=== PATIENT | male | born 1965 | race Caucasian/White ===

== ENCOUNTER → 2020-04-18 09:02 | Outpatient (CLI) | payer OTHER, SELFPAY ==
--- NOTE | ~2020-04-18 | CT_ITS ---
EXAMINATION: CT abdomen pelvis wo/w con DATE: 04/18/2020 09:43 INDICATION: Gross hematuria. Right flank pain. TECHNIQUE: Computed tomography (CT) of the abdomen and pelvis was performed without and with intraven ous contrast using a total of 130 mL Omnipaque-350 intravenous contrast with a double-bolus technique for simultaneous opacification of the renal parenchyma and renal collecting system. Automated exposu re control and iterative reconstruction technique were employed. The dose-length product was 2355.12 mGy-cm. COMPARISON: None FINDINGS: The visualized portions of the lung bases demonstrate a calcified left lower lobe nodule, consistent with old granulomatous disease. No pleural effusion. The heart size is normal. No pericardial effusio n. There is diffuse hepatic steatosis. There is a 13 mm hyperenhancing mass in left hepatic lobe. Stanley cifications in the spleen are consistent with old granulomatous disease. The gallbladder, pancreas, a nd adrenal glands are normal. There are cysts in the kidneys measuring up to 13 mm on the left. There is a 6 mm stone in left kidney. The ureters are well opacified and are normal. The bladder is normal . The prostate is mildly enlarged. There are no dilated loops of bowel. There are no pathologically e nlarged lymph nodes. There is no free intraperitoneal fluid. There is mild thoracolumbar spondylosis. IMPRESSION: 1. 6 mm nonobstructing left kidney stone. 2. 13 mm hyperenhancing liver mass. In the absence of known malignancy or chronic liver disease, this finding is likely a hemangioma or focal nodular hyperplasia. Reviewed, dictated and finalized at location A. ROASTER IMPRESSION: 1. 6 mm nonobstructing left kidney stone. 2. 13 mm hyperenhancing liver mass. In the absence of known malignancy or chron ic liver disease, this finding is likely a hemangioma or focal nodular hyperpla blaze.
[2020-04-18 09:20] LABS: Estimated Glomerular Filt Rate > 60
== END ==
PROVIDERS: PCP Family Medicine; Visit Provider Urology
DX: R31.0 Gross hematuria (principal); N20.0 Calculus of kidney; R16.0 Hepatomegaly, not elsewhere classified
CPT/HCPCS: 74178; Q9967

== ENCOUNTER → 2020-05-03 09:47 | Outpatient (CLI) | payer OTHER, SELFPAY ==
--- NOTE | ~2020-05-03 | XR_ITS ---
EXAMINATION: XR abdomen/kub 1V INDICATION: Calcium kidney stone TECHNIQUE: Supine views of the abdomen were obtained on 2 radiographs. COMPARISON: CT, 04/18/2020 FINDINGS: There is a 7 mm stone in the left kidney lower pole. No additional urolithiasis is identifi ed. The bowel gas pattern is normal. There is mild osteoarthritis of the hips. IMPRESSION: 1. Left nephrolithiasis. Reviewed, dictated and finalized at location A. [employer] IMPRESSION: 1. Left nephrolithiasis.
== END ==
PROVIDERS: PCP Family Medicine; Visit Provider Urology
DX: N20.0 Calculus of kidney (principal)
CPT/HCPCS: 74018

== ENCOUNTER → 2021-01-17 16:49 | Outpatient (CLI) | payer OTHER, SELFPAY ==
--- NOTE | ~2021-01-17 | XR_ITS ---
XR knee RT 3V DATE: 01/17/2021 17:30 INDICATION: Arthralgia. Right knee pain. TECHNIQUE: [place] and standing AP and lateral views COMPARISON: None FINDINGS: Slight periarticular spurring at the patellofemoral joint. Joint spaces appear well preserv ed. No fracture or dislocation or joint effusion. No radiopaque intra-articular loose body or chondrocalc inosis. No periosteal reaction or bone destruction. IMPRESSION: Mild osteoarthritis at the patellofemoral joint Reviewed, dictated and finalized at location A.
--- NOTE | ~2021-01-17 | XR_ITS ---
XR foot RT 2V DATE: 01/17/2021 17:30 INDICATION: Arthralgia. Right foot pain. TECHNIQUE: AP and lateral views COMPARISON: None FINDINGS: Mild plantar calcaneal enthesopathy without associated erosive change or periostitis. Minimal calcification of the distal Achilles tendon. No fracture or dislocation, periosteal reaction or bone destruction. IMPRESSION: Mild plantar calcaneal enthesopathy, minimal calcification of distal Achilles tendon Reviewed, dictated and finalized at location A. IMPRESSION: Mild plantar calcaneal enthesopathy, minimal calcification of dista l Achilles tendon
--- NOTE | ~2021-01-17 | XR_ITS ---
XR hand BI arthritis min 3V DATE: 01/17/2021 17:29 INDICATION: Arthralgia. Bilateral hand pain TECHNIQUE: 3 views of each hand COMPARISON: None FINDINGS: No fracture or dislocation, periosteal reaction or bone destruction. Minimal osteoarthritic change at the right third metacarpophalangeal joint. No evidence of erosive change. No chondrocalcinosis. IMPRESSION: Minimal osteoarthritic change at the right third metacarpophalangeal joint Reviewed, dictated and finalized at location A. IMPRESSION: Minimal osteoarthritic change at the right third metacarpophalangea l joint
--- NOTE | ~2021-01-17 | XR_ITS ---
XR knee LT 3V DATE: 01/17/2021 17:30 INDICATION: Arthralgia. Knee pain. TECHNIQUE: Standing AP and lateral views. Mckenzie view. COMPARISON: None FINDINGS: There is slight periarticular spurring of the patella. No fracture or dislocation or joint effusion. No periosteal reaction or bone destruction. IMPRESSION: Mild patellofemoral osteoarthritis Reviewed, dictated and finalized at location A.
--- NOTE | ~2021-01-17 | XR_ITS ---
XR foot LT 2V DATE: 01/17/2021 17:30 INDICATION: Arthralgia. Left foot pain. TECHNIQUE: AP and lateral views COMPARISON: None FINDINGS: Posterior calcaneal enthesopathy. No fracture or dislocation, periosteal reaction or bone destruction. No erosive change. IMPRESSION: Posterior calcaneal enthesopathy Reviewed, dictated and finalized at location A.
== END ==
DX: M25.50 Pain in unspecified joint (principal); Z79.899 Other long term (current) drug therapy; Z51.81 Encounter for therapeutic drug level monitoring; M77.32 Calcaneal spur, left foot; M77.31 Calcaneal spur, right foot; M65.871 Other synovitis and tenosynovitis, right ankle and foot; M17.0 Bilateral primary osteoarthritis of knee; M19.042 Primary osteoarthritis, left hand; M19.041 Primary osteoarthritis, right hand
CPT/HCPCS: 73130; 73562; 73620

== ENCOUNTER 2022-01-15 08:31 | Outpatient (CLI) | payer OTHER, SELFPAY ==
--- NOTE | ~2022-01-15 | XR_ITS ---
EXAMINATION: XR chest 2V DATE: 01/15/2022 09:00 INDICATION: Chronic cough and shortness of breath TECHNIQUE: PA and lateral views of the chest are obtained. COMPARISON: 03/03/2010 FINDINGS: The lungs are free of acute opacities. No pleural effusion or pneumothorax. The cardiomedia stinal silhouette is normal. The visualized bones and soft tissues are unremarkable. IMPRESSION: 1. No acute cardiopulmonary abnormality. Reviewed, dictated and finalized at location B.
== END 2022-01-15 08:32 | disposition home or self-care (01) ==
PROVIDERS: PCP Family Medicine; Visit Provider Family Medicine
DX: U09.9 Post COVID-19 condition, unspecified (principal); R06.09 Other forms of dyspnea; R05.3 Chronic cough
CPT/HCPCS: 71046

== ENCOUNTER → 2022-12-07 08:01 | Outpatient (CLI) | payer OTHER, SELFPAY ==
--- NOTE | ~2022-12-07 | XR_ITS ---
EXAMINATION: XR chest 2V DATE: 12/07/2022 08:16 INDICATION: Chronic abdominal and left lateral chest pain TECHNIQUE: PA and lateral views of the chest were obtained. COMPARISON: Chest radiograph dated 01/15/2022 FINDINGS: The lungs remain clear with no focal airspace opacities, pulmonary edema, pleural effusion or pneumot horax. The cardiomediastinal silhouette is normal. Chronic left eighth rib fracture, unclear whether united or ununited. IMPRESSION: 1. No acute cardiopulmonary disease. 2. Chronic left eighth rib fracture, unclear whether ununited or ununited. Reviewed, dictated and finalized at location A.
== END ==
PROVIDERS: PCP Nurse Practitioner Family; Visit Provider Nurse Practitioner Family
DX: R10.9 Unspecified abdominal pain (principal); M84.48XA Pathological fracture, other site, initial encounter for fracture
CPT/HCPCS: 71046

== ENCOUNTER 2022-12-27 12:29 | Outpatient (CLI) | payer OTHER, SELFPAY ==
--- NOTE | 2022-12-27 16:20 | WPDPFTINT ---
PFT Procedure Performed PFT Procedure Performed Spirometry with Pre/Post Bronchodilator Plethysmography (Lung Vol) Diffusing Cap (DLCO) Flow Vol Loop PFT Interpretation This is a pulmonary function test with pre and post-bronchodilator spirometry, plethysmography and diffusing capacity. The test was performed and results interpreted in accordance with the 2019 and 2005 ATS/ERS Task Force guidelines respectively using the Global Lung Function Initiative-2012 reference equations. Patient demonstrated good effort and cooperation. Reproducibility criteria were met. The quality of the pre bronchodilator spirometry maneuver was Grade A and post bronchodilator spirometry maneuver was Grade A. Findings: Spirometry: The contour the inspiratory and expiratory flow tracing are normal. The pre bronchodilator FVC is 4.98 L, 107% predicted. The pre bronchodilator FEV1 is 4.08 L, 112% predicted. The pre bronchodilator FEV1: FVC ratio is 82%. The post bronchodilator FVC is 5.01 L, representing 1% increase. The post bronchodilator FEV1 is 4.21 L, representing a 3% increase. The post bronchodilator FEV1: FVC ratio was 84%. Plethysmography: The total lung capacity is 7.97 L, 118% predicted. The functional residual capacity is 4.22 L, 122% predicted. The residual volume is 2.84 L, 137% predicted. Diffusing capacity: The diffusing capacity unadjusted for hemoglobin and carboxyhemoglobin is 32.2, 110% predicted. The diffusing capacity adjusted for alveolar volume is 5.07, 114% predicted. Impression: The spirometry is normal without evidence of an obstructive abnormality. There is no significant improvement after inhaling a single dose of albuterol. The total lung capacity and functional residual capacity are normal with an increased residual volume. This is an abnormal but nonspecific lung volume pattern. The diffusing capacity is normal. There are no prior studies for comparison
== END 2022-12-27 12:30 | disposition home or self-care (01) ==
PROVIDERS: PCP Nurse Practitioner Family; Visit Provider Nurse Practitioner Family
DX: R05.9 Cough, unspecified (principal); R06.02 Shortness of breath
CPT/HCPCS: 94060; 94726; 94729

== ENCOUNTER 2023-01-08 13:32 | Outpatient (CLI) | payer OTHER, SELFPAY ==
--- NOTE | ~2023-01-08 | CT_ITS ---
EXAMINATION: CT chest abdomen wo con DATE: 01/08/2023 13:54 INDICATION: Chronic cough TECHNIQUE: Computed tomography (CT) of the chest and abdomen was performed without intravenous contra st. The dose-length product (DLP) was 1405.10 mGy-cm. Automated exposure control and iterative recons truction technique were employed. COMPARISON: 04/18/2020 FINDINGS: CHEST: The lungs are free of acute opacities. No pleural effusion or pneumothorax. Calcified pulmonar y nodules and calcified left hilar lymph nodes are consistent with old granulomatous disease. No path ologically enlarged thoracic lymph nodes are identified. The heart size is normal. There is calcified coronary artery atherosclerosis. There is a healing left eighth rib fracture. ABDOMEN: The liver, pancreas, gallbladder, and adrenal glands are normal. Punctate calcifications in an otherwise normal spleen likely represent healed granulomatous disease. There are punctate nonobstr ucting stones of the right kidney. There is a 1.4 cm cyst of the left kidney. There are no pathologic ally enlarged abdominal lymph nodes. Calcified atherosclerosis is noted. No free intraperitoneal gas or evidence of bowel obstruction. IMPRESSION: 1. No CT correlate for the patient's symptoms. Reviewed, dictated and finalized at location L.
== END 2023-01-08 13:33 | disposition home or self-care (01) ==
PROVIDERS: PCP Nurse Practitioner Family; Visit Provider Nurse Practitioner Family
DX: R05.3 Chronic cough (principal); R06.02 Shortness of breath; R10.9 Unspecified abdominal pain; R06.09 Other forms of dyspnea; U09.9 Post COVID-19 condition, unspecified
CPT/HCPCS: 71250; 74150

== ENCOUNTER 2023-02-01 13:29 | Outpatient (CLI) | payer OTHER, SELFPAY ==
--- NOTE | ~2023-02-01 | US_ITS ---
EXAMINATION: US carotid duplex BI DATE: 02/01/2023 14:04 INDICATION: Dizziness and giddiness TECHNIQUE: Grayscale, color Doppler, and pulsed Doppler images of the cervical carotid arteries were obtained. The degree of vessel stenosis is placed in one of the following categories: normal, <50%, 5 0-69%, >=70% but less than near-occlusion, near-occlusion, or total occlusion. Note that percent sten osis relative to normal distal artery lumen diameter is indirectly measured from velocity measurement s as described by Channing, et al. Radiology 2003; 229:340-346. COMPARISON: None. FINDINGS: RIGHT: The right common carotid artery (CCA) peak systolic velocity (PSV) is 81 cm/s. The right internal car otid artery (ICA) PSV is 72 cm/s. The right ICA end-diastolic velocity (EDV) is 31 cm/s. The right IC A/CCA PSV ratio is 0.9. Grayscale and color Doppler images yield an estimate of <50% diameter reducti on from plaque in the ICA. The external carotid artery (ECA) PSV is 114 cm/s. There is antegrade flow in the right vertebral artery. LEFT: The left CCA PSV is 96 cm/s. The left ICA PSV is 72 cm/s. The left ICA EDV is 23 cm/s. The left ICA/C CA PSV ratio is 0.8. Grayscale and color Doppler images yield an estimate of <50% diameter reduction from plaque in the ICA. The ECA PSV is 119 cm/s. There is antegrade flow in the left vertebral artery . IMPRESSION: 1. <50% stenosis in the right internal carotid artery. 2. <50% stenosis in the left internal carotid artery. Reviewed, dictated and finalized at location A.
== END 2023-02-01 13:30 | disposition home or self-care (01) ==
LOC: ANHIMG 13:34
PROVIDERS: PCP Nurse Practitioner Family; Visit Provider Nurse Practitioner Family
DX: I65.23 Occlusion and stenosis of bilateral carotid arteries (principal); R42 Dizziness and giddiness
CPT/HCPCS: 93880

== ENCOUNTER 2023-02-25 13:28 | Outpatient (CLI) | payer OTHER, SELFPAY ==
--- NOTE | 2023-02-25 13:56 | ECHO_ITS ---
Patient Info Name: Srinivasa Degroot Age: 57 years : 1965 Gender: Male Ht: 68 in Wt: 255 lbs BSA: 2.41 m2 HR: 78 bpm BP: 130 / 79 mmHg Technical Quality: Fair Exam Date: 02/25/2023 1:58 PM [facility]am [facility] Patient Status: Outpatient Admit Date: 02/25/2023 Staff Ordering Physician: Angelito Ibrahim APRN Calibration Engineer: Radha Shane RDCS Attending Provider: Angelito Ibrahim APRN Referring Physician: Patrice YIN; Exam Type: CA echo doppler color flow Study Info Indications R06.09 - Other forms of dyspnea Complete two-dimensional, color flow and Doppler transthoracic echocardiogram is performed. Summary 1. Complete two-dimensional, color flow and Doppler transthoracic echocardiogram is performed. 2. Left ventricular chamber dimension is normal. 3. Left ventricular systolic function is normal, estimated at 55-60%. 4. There is mild concentric increased left ventricular wall thickness. 5. Left ventricular septal wall motion is abnormal with septal motion related to bundle branch block. 6. The left ventricular diastolic function is grade I diastolic dysfunction. 7. E/e' 9 is minimally elevated. 8. Left atrial chamber dimension is mildly enlarged. 9. There is mild mitral valve regurgitation. 10. There is trace tricuspid valve regurgitation. 11. No pulmonary hypertension, estimated pulmonary arterial systolic pressure is 29 mmHg. 12. There is trace pulmonic regurgitation. Left Ventricle E/e' 9 is minimally elevated. Left ventricular chamber dimension is normal. Left ventricular systolic function is normal, estimated at 55-60%. There is mild concentric increased left ventricular wall thickness. Left ventricular septal wall motion is abnormal with septal motion related to bundle branch block. The left ventricular diastolic function is grade I diastolic dysfunction. Right Ventricle Right ventricular chamber dimension is normal. Right ventricular systolic function is normal. Left Atria Left atrial chamber dimension is mildly enlarged. Right Atria Right atrial chamber dimension is normal. Aortic Valve The aortic valve is trileaflet. There is no aortic valve stenosis. There is no aortic valve regurgitation. Pulmonic Valve There is trace pulmonic regurgitation. Mitral Valve There is no mitral valve stenosis. There is mild mitral valve regurgitation. Tricuspid Valve There is trace tricuspid valve regurgitation. No pulmonary hypertension, estimated pulmonary arterial systolic pressure is 29 mmHg. Pericardium/Pleural There is no pericardial effusion. Inferior Vena Cava Normal inferior vena cava with >50% collapse upon inspiration consistent with normal right atrial pressure, 5 mmHg. Aorta The aortic root size at the sinus of Valsalva is normal. Left Ventricular Outflow Tract Name Value Normal LVOT 2D LVOT Diameter 2.1 cm LVOT Doppler LVOT Peak Gradient 6 mmHg LVOT Mean Gradient 3 mmHg LVOT VTI 22 cm LVOT VTI/AV VTI Ratio 0.9 LVOT Stroke Volume 78 ml LVOT CO 17.8 l/min
== END 2023-02-25 13:29 | disposition home or self-care (01) ==
PROVIDERS: PCP Nurse Practitioner Family; Visit Provider Nurse Practitioner Family
DX: R06.09 Other forms of dyspnea (principal); R42 Dizziness and giddiness; I34.0 Nonrheumatic mitral (valve) insufficiency; I07.1 Rheumatic tricuspid insufficiency; I37.1 Nonrheumatic pulmonary valve insufficiency; R93.1 Abnormal findings on diagnostic imaging of heart and coronary circulation
CPT/HCPCS: 93306

== ENCOUNTER 2023-03-04 08:35 | Outpatient (CLI) | payer OTHER, SELFPAY ==
--- NOTE | 2023-03-12 19:26 | WPDHOMESLEEP ---
Sleep Study - Home Unattended Date of Study: 03/04/23 Ordering Provider: Angelito Ibrahim APRN Interpreting Provider: Jonelle Evangelista, DO Home Sleep Study Type: Watch PAT Height: 1.73 m Weight: 117.934 kg Body Mass Index: 39.5 Neck Circumference (inches): 18 [place]: 14 Reason for Sleep Study Daytime hypersomnia Sleep History The patient is a 57-year-old male with hypertension, hyperlipidemia, diabetes, depression, coronary artery disease, fatty liver and obesity that had a sleep study ordered by the pulmonary group for evaluation of sleep apnea. The patient denies awakening from sleep short of breath. He occasionally awakens at night with heartburn, belching or cough. He occasionally snores but it is never loud enough that others complain. He frequently has trouble sleeping when he has a cold. He denies waking up gasping for air throughout the night. He occasionally has breathing problems at night observed by himself or others. He denies sweating excessively at night. He denies having heart palpitations or irregular heartbeats during the night. He constantly falls asleep during the day but rarely falls asleep while driving. He denies sleep paralysis, cataplexy and hypnagogic / hypnopompic hallucinations. He denies having trouble at school or work due to sleepiness. He denies feeling afraid of going to sleep. He rarely has nightmares. He denies remembering his dreams. He frequently has thoughts racing through his mind. He denies feeling sad or depressed. He occasionally has anxiety. He frequently has muscular tension. He frequently notices parts of his body jerk. He frequently kicks during the night. He denies experiencing crawling and aching feelings in his legs and denies having leg pain during the night. He rarely grinds his teeth during sleep but never awakens with morning jaw pain. He denies being bothered by pain during the day and denies being awakened by pain during the night. He frequently wakes up feeling stiff in the morning. He rarely wakes up with sore or achy muscles. He frequently wakes up with pain in the neck, spine or other joints. He goes to bed at 9:00 p.m. on weekdays and between 10-11 p.m. on the weekends. It takes him 5 minutes to fall asleep. He wakes up 1-2 times throughout the night to urinate. He states it is difficult to fall back asleep. He wakes up between 4-5 a.m. on both weekdays and weekends. He typically gets 6-7 hours of sleep per night. He will stay in bed for 20 minutes after waking up in the morning on weekdays and up to 1 hour on the weekends. He currently lives with his and 2 adult children. He denies consuming any caffeinated beverages within 2 hours of bedtime. He denies engaging in physical exercise before bedtime. He will watch television before falling asleep. He will take naps in afternoon or the evening but they are not refreshing. He consumes 1 cup of caffeinated coffee per day. He will consume a 12 pack of beer on the weekend. He denies tobacco and recreational drug use. [facility] Past Medical History Medical History Abdominal pain in male Abnormal fasting glucose Acute bronchitis Acute non-recurrent maxillary sinusitis Adult BMI 39.0-39.9 kg/sq m Carpal tunnel syndrome of left wrist Chronic cough Chronic depression Colon cancer screening Cologuard screening negative on 04/13/2020 with recheck in 3 years Controlled diabetes mellitus Glucose 142 with hemoglobin A1c 6.1 on 08/10/2021. Glucose 132 with hemoglobin A1c 6.8 on 01/09/2022. Cough COVID-19 (~06/24/20) COVID-19 (~06/09/21) 2nd episode COVID-19 [place] manifesting chronic cough (~06/2021) COVID-19 [place] manifesting chronic dyspnea (~06/2021) Diabetes type 2, uncontrolled DMII (diabetes mellitus, type 2) Encounter for prostate cancer screening Encounter for wellness examination in adult Essential (primary) hypertension Exposure
[2023-03-12 19:31] VITALS: BMI 39.5
== END 2023-03-06 12:55 | disposition home or self-care (01) ==
LOC: ANHCSM 08:35
PROVIDERS: PCP Nurse Practitioner Family; Visit Provider Nurse Practitioner Family
DX: G47.10 Hypersomnia, unspecified (principal); G47.33 Obstructive sleep apnea (adult) (pediatric)
CPT/HCPCS: 95800

== ENCOUNTER 2024-03-05 07:56 | Outpatient (CLI) | payer OTHER, SELFPAY ==
--- NOTE | 2024-03-24 09:59 | WPDSLEEPSTUD ---
Sleep Study Date of Study: 03/05/24 Ordering Provider: Mohsen Sanford MD Interpreting Physician: Jonelle Evangelista DO Sleep Study Type: CPAP Titration Height: 1.75 m Weight: 121.563 kg Body Mass Index: 39.5 Neck Circumference (inches): 18 Prentice: 14 Reason for Sleep Study WatchPAT home sleep test on 03/04/2023 showed an overall AHI of 15.9 with desaturation down to 86%. Central apnea index of 4.0. Sleep History The patient is a 59-year-old male with hypertension, hyperlipidemia, diabetes, depression, coronary artery disease, fatty liver and obesity that had a sleep study ordered by the pulmonary group for evaluation of sleep apnea. The patient denies awakening from sleep short of breath. He occasionally awakens at night with heartburn, belching or cough. He occasionally snores but it is never loud enough that others complain. He frequently has trouble sleeping when he has a cold. He denies waking up gasping for air throughout the night. He occasionally has breathing problems at night observed by himself or others. He denies sweating excessively at night. He denies having heart palpitations or irregular heartbeats during the night. He constantly falls asleep during the day but rarely falls asleep while driving. He denies sleep paralysis, cataplexy and hypnagogic / hypnopompic hallucinations. He denies having trouble at school or work due to sleepiness. He denies feeling afraid of going to sleep. He rarely has nightmares. He denies remembering his dreams. He frequently has thoughts racing through his mind. He denies feeling sad or depressed. He occasionally has anxiety. He frequently has muscular tension. He frequently notices parts of his body jerk. He frequently kicks during the night. He denies experiencing crawling and aching feelings in his legs and denies having leg pain during the night. He rarely grinds his teeth during sleep but never awakens with morning jaw pain. He denies being bothered by pain during the day and denies being awakened by pain during the night. He frequently wakes up feeling stiff in the morning. He rarely wakes up with sore or achy muscles. He frequently wakes up with pain in the neck, spine or other joints. He goes to bed at 9:00 p.m. on weekdays and between 10-11 p.m. on the weekends. It takes him 5 minutes to fall asleep. He wakes up 1-2 times throughout the night to urinate. He states it is difficult to fall back asleep. He wakes up between 4-5 a.m. on both weekdays and weekends. He typically gets 6-7 hours of sleep per night. He will stay in bed for 20 minutes after waking up in the morning on weekdays and up to 1 hour on the weekends. He currently lives with his and 2 adult children. He denies consuming any caffeinated beverages within 2 hours of bedtime. He denies engaging in physical exercise before bedtime. He will watch television before falling asleep. He will take naps in afternoon or the evening but they are not refreshing. He consumes 1 cup of caffeinated coffee per day. He will consume a 12 pack of beer on the weekend. He denies tobacco and recreational drug use. [facility] Past Medical History Medical History Abdominal pain in male Abnormal fasting glucose Acute bronchitis Acute non-recurrent maxillary sinusitis Adult BMI 39.0-39.9 kg/sq m Bilateral otitis media Carpal tunnel syndrome of left wrist Chronic cough Chronic depression Colon cancer screening Cologuard screening negative on 04/13/2020 with recheck in 3 years Controlled diabetes mellitus Glucose 142 with hemoglobin A1c 6.1 on 08/10/2021. Glucose 132 with hemoglobin A1c 6.8 on 01/09/2022. Controlled diabetes mellitus with hyperglycemia, without long-term current use of insulin Glucose 142 with hemoglobin A1c 6.1 on 08/10/2021. Glucose 132 with hemoglobin A1c 6.8 on 01/09/2022. Cough COVID-19 (~06/24/20) COVID-19 (~06/09/21) 2nd episode COVID-19 long hauler manifesting chronic cough (~06/2021) COVID-19 long hauler manifesting chronic dyspnea (~06/2021) Encounter for prostate cancer screening Encounter for wellness examination in adult Essential (primary) hypertension Exposure to COVID-19 virus Fatty liver AST 17 and ALT 32 on 08/10/2021. AST 30 and ALT 37 on 01/09/2022. Hematuria, gross urinalysis normal 08/10/2021. Urinalysis normal on 01/09/2022. Insomnia Left flank pain Left knee pain intermittent left lateral knee pain with no instability Left ventricular hypertrophy due to hypertensive disease (12/17/16) moderate LVH on echocardiogram 12/17/2017 with nuclear stress test with left bundle branch block and possible anteroseptal defect. Cardiac catheterization 12/20/2017 with less than 20% lesions in coronary arteries per Microscopic hematuria Urinalysis normal 01/09/2022. Mixed hyperlipidemia total cholesterol 156, triglycerides 173, HDL 44, LDL 85 on 08/10/2021. Total cholesterol 172, triglycerides 257, HDL 45 and LDL 93 on 01/09/2022. Morbid obesity with BMI of 40.0-44.9, adult Osteoarthritis involving multiple joints on both sides of body Otitis media in diseases classified elsewhere, right ear Renal stone Rheumatoid arthritis of multiple sites without organ or system involvement with positive rheumatoid factor CRP 5 on 08/10/2021. Rib pain on left side (~07/2021) Chest x-ray on 01/15/2022 was normal. Seasonal allergic rhinitis SOB (shortness of breath) Vitamin B12 deficiency anemia B12 385 with goal greater than 400 with folic acid 13.1 and hemoglobin 14.6 on 08/10/2021 Wrist pain, left Surgical History Surgical History H/O knee surgery H/O shoulder surgery History of ankle surgery Family History Family History Mother Hypertension Sibling Hypertension Father Family history of lung cancer Patient's father is Social History Social History Smoking status: Never smoker Alcohol intake: current Drinks per week: 6 Alcohol use details: beer Substance use: never Substance use type: does not use Living arrangements: with family Gender identity (if verbalized by the patient): Male Medications Home Medications Medication Instructions Recorded Confirmed Type cetirizine 10 mg tablet (Zyrtec) 10 mg PO DAILY PRN allergy symptoms 06/10/19 12/25/23 History fluticasone propionate 50 1 spray intranasal BID 06/10/19 12/25/23 History mcg/actuation nasal spray,suspension (Flonase Allergy Relief) aspirin 81 mg tablet,delayed 81 mg PO DAILY 09/06/20 12/25/23 History release (Adult Aspirin Regimen) blood sugar diagnostic (Blood #100 ea 12/12/22 12/25/23 Rx Glucose Test strips) blood-glucose meter #1 ea 12/12/22 12/25/23 Rx lancets 33 gauge (BD Ultra Fine #100 ea 12/12/22 12/25/23 Rx Lancets) lisinopril 40 mg tablet 40 mg PO DAILY #30 tabs 05/06/23 12/25/23 Rx cefdinir 300 mg capsule 300 mg PO Q12H #20 caps 06/28/23 12/25/23 Rx escitalopram oxalate 10 mg tablet 10 mg PO DAILY #90 tabs 07/01/23 12/25/23 Rx (Lexapro) doxycycline hyclate 100 mg tablet 100 mg PO BID #20 tabs 08/20/23 12/25/23 Rx prednisone 20 mg tablet 20 mg PO . q.a.m. #7 tabs 08/20/23 12/25/23 Rx atorvastatin 40 mg tablet 40 mg PO DAILY #90 tabs 11/11/23 12/25/23 Rx semaglutide 2 mg/dose (8 mg/3 mL) 2 mg (0.75 mL) subcut WEEKLY #3 mL 12/25/23 12/25/23 Rx subcutaneous pen injector (Ozempic) amlodipine 5 mg tablet 5 mg PO DAILY #30 tabs 02/19/24 Rx zolpidem 10 mg tablet (Ambien) 10 mg PO QHS PRN insomnia #2 tabs 03/03/24 Rx naproxen 500 mg tablet (Naprosyn) 500 mg PO BID PRN pain #180 tabs 03/23/24 Rx Sleep Procedure A full night polysomnogram using the [place] multi-channel system recorded the standard physiologic parameters including EEG, EOG, submentalis EMG, anterior tibialis EMG, EKG, body position, nasal and oral airflow using nasal pressure sensor and thermistor.? Respiratory parameters of chest and abdominal movements were recorded with Respiratory Inductance Plethysmography belts. Oxygen saturation was recorded by pulse oximetry. Video monitoring was also performed. Sleep stages, periodic limb movements, and EEG arousals were scored in 30 second epochs according to the criteria of the AASM Scoring Manual. The Apnea-Hypopnea Index was calculated using CMS guidelines for definition of hypopnea with 4% O2 desaturations while scoring respiratory events. Sleep Architecture The total recording time was 467.1 minutes.? The total sleep time was 367.0 minutes. Sleep latency was 8.4 minutes. REM latency was 46.5 minutes. Sleep efficiency was 78.6%. The patient had 57 awakenings for an awakening index of 9.3. Wake after Sleep Onset time was 91.5 minutes. The patient spent 50.0 minutes, 13.6% of total sleep time in Stage N1. The patient spent 260.0 minutes, 70.8% in Stage N2. The patient spent 0.0 minutes, 0.0% in Stage N3. The patient spent 57.0 minutes, 15.5% in Stage REM. Respiratory Analysis The patient had 12 hypopneas, 4 obstructive apneas and 2 mixed apneas for an overall Apnea Hypopnea Index of 2.9 events per hour. The REM Apnea Hypopnea Index was 2.1. The NREM Apnea Hypopnea Index was 3.1. The patient had a Central Apnea Hypopnea Index of 0. There was no evidence of Jayme-Vásquez Respirations. The patient was started on CPAP 5 cm H2O and titrated to CPAP 15 cm H2O with an EPR of 3 due to hypopneas. The patient was able to fall asleep starting on CPAP 5 cm H2O. The patient was able to achieve REM sleep starting on CPAP 7 cm H2O. The patient was able to achieve a residual AHI less than 5 with both NREM and REM sleep on 13 cm H2O. On CPAP 13 cm H2O, the patient spent 90.5 minutes in NREM and 14.5 minutes in REM with 5 hypopneas, resulting in an AHI of 2.9. The patient had a sleep efficiency of 91.3% on this pressure setting. Arousals There were 137 total arousals for an arousal index of 22.4. There were 71 spontaneous arousals for an index of 11.6. ?There were 19 arousals due to respiratory events for an index of 3.1. There were 24 arousals due to periodic limb movements for an index of 3.9.? There were 23 arousals due to isolated limb movements for an index of 3.8. Periodic Limb Movements The patient had 31 isolated limb movements with an index of 5.1. The patient had 91 periodic limb movements with index of 14.9. Patient had a total of 122 limb movements with a total limb movement index of 19.9. Oximetry Data The patient had an average oxygen saturation of 96.6% in sleep with a minimum oxygen saturation of 91.0% and a maximum oxygen saturation of 99.0%. The patient had 25 oxygen desaturations that were 4% or greater resulting in an Oxygen Desaturation Index of 4.1.? The patient spent [min] minutes, [%] of total sleep time with an oxygen saturation below 88%. Snoring Profile Mild snoring was present intermittently in the beginning of this study. The snoring resolved once the patient was titrated to CPAP 13 cm H2O. Cardiac Profile The EKG showed normal sinus rhythm with rare PACs. There were some QRS complexes that were suspicious for bundle brand block. The patient had an average pulse rate of 72.9 bpm with a minimum pulse rate of 60.0 bpm and a maximum pulse rate of 95.0 bpm. ? EEG Profile No signs of seizure activity seen. Assessment and Plan Assessment and Plan (1) AVIVA (obstructive sleep apnea): Code(s): G47.33 - Obstructive sleep apnea (adult) (pediatric) Status: Acute Assessment and Plan: The patient was started on CPAP 5 cm H2O and titrated to CPAP 15 cm H2O with an EPR of 3 due to hypopneas. We were able to find a pressure setting that resolved the patient's sleep apnea. I recommend that the patient be prescribed CPAP 13 cm H2O, size large F&P Solo nasal mask, CPAP filters/tubing and heated humidity. This should be used with all episodes of sleep.? Compliance should be reviewed within 31-90 days of starting therapy for usage greater than 4 hours per night greater than 70% of the nights. The patient should be asked about symptoms such as?excessive daytime sleepiness, quality of sleep, decreased nocturia, increased?mental functioning such as memory, mood, and concentration. The patient had a significant number of limb movements during the study with the majority being periodic in nature. The patient's sleep history is suggestive of Restless Leg Syndrome. I recommend that the patient have a serum ferritin drawn for evaluation of iron deficiency anemia. If the patient has a serum ferritin less than 75 ng/mL, I recommend starting a daily iron supplement and a Vitamin C supplement for better absorption. If the serum ferritin is greater than 75 ng/mL, I recommend starting a dopamine agonist and titrating the dose until symptoms resolve. There are nonpharmacological methods to treat limb movements including daily exercise, stretching calf muscles before bed, avoiding excessive amounts of caffeine and alcohol, vitamin B supplementation, magnesium lotion massaged into legs before bed, and use of a weighted blanket. Data The data obtained during this sleep study is adequate for interpretation. Certification This sleep study has been reviewed by a board certified sleep medicine physician.
[2024-03-24 10:00] VITALS: BMI 39.5
== END 2024-03-06 05:40 | disposition home or self-care (01) ==
LOC: ANHCSM 07:57
PROVIDERS: PCP Nurse Practitioner Family; Visit Provider Family Medicine
DX: G47.33 Obstructive sleep apnea (adult) (pediatric) (principal); G47.10 Hypersomnia, unspecified; F39 Unspecified mood [affective] disorder
CPT/HCPCS: 95811

== ENCOUNTER 2024-07-03 15:59 | Outpatient (CLI) | payer OTHER, SELFPAY ==
--- NOTE | ~2024-07-03 | CT_ITS ---
EXAMINATION: CT IAC/mastoids BI wo con DATE: 07/03/2024 16:16 INDICATION: Chronic mastoiditis, right ear. TECHNIQUE: Computed tomography (CT) of the temporal bones was performed without intravenous contrast. Automated exposure control and iterative reconstruction technique were employed. The dose-length pro duct was 402.17 mGy-cm. COMPARISON: CT sinuses 12/22/2007 FINDINGS: RIGHT TEMPORAL BONE: The internal auditory canal, cochlea, vestibule, semicircular canals, vestibular aqueduct, carotid ca nal, jugular bulb, and facial nerve course are normal. Incus is deformed and in abnormal position. Th ere is material in the tympanic cavity abutting the ossicles and tympanic membrane. Prussak space is clear. There is a myringotomy tube in expected position. Scutum is normal. The mastoid air cells and external auditory canal are normal. LEFT TEMPORAL BONE: The internal auditory canal, cochlea, vestibule, semicircular canals, vestibular aqueduct, carotid ca nal, jugular bulb, facial nerve course, ossicles, Prussak space, scutum, tympanic membrane, mastoid a ir cells, and external auditory canal are normal. IMPRESSION: 1. Material in right tympanic cavity with abnormal ossicles and with myringotomy tube, consistent wit h chronic otitis media. Reviewed, dictated and finalized at location A. IC ADDRESS SYSTEM OPERATOR IMPRESSION: 1. Material in right tympanic cavity with abnormal ossicles and with myringotom y tube, consistent with chronic otitis media.
--- OUTSIDE RECORDS SUMMARY | 2024-07-03 16:03 | XMS_ITS | Continuity of Care Document ---
Author Name [facility] Organization 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 Unavailable Unavailable Problems Combined list of problems from [facility] facilities. It does not include entries that were removed or entered in error. Problem Status Onset Date Problem Type Date of Resolution Comments Source Hyperlipidemia * (ICD-9-CM 272.4) Active Condition [facility] Impaired FASTING Glucose Active Condition [facility] Morbid Obesity Active Condition [facility] Medications Combined list of outpatient medications from [facility] facilities.Medications provided include 1) outpatient medications from the last 15 months, and 2) patient-reported medications. Medication Details Route Status Patient Instructions Prescription Expires Prescription Number Last Dispense Date Ordering Provider Order Date Order Qty Source ALPRAZOLAM 0.25MG TAB TAKE ONE TABLET BY MOUTH TWICE DAILY NEEDED ORAL ACTIVE FAN,SASKIA N 2011 [facility] CHOLECALCIF ARTHUR 25MCG (1,000UNIT) TAB TAKE ONE TABLET BY MOUTH ONCE A DAY ORAL ACTIVE FAN,SASKIA N 2011 [facility] Allergies, Adverse Reactions, Alerts Combined list of allergies from [facility] facilities. It does not include entries that were removed or entered in error. Substance Category Reaction Severity Reaction type Status Date Reported Comments Source LOVASTATIN Propensity to adverse reactions to drug (finding) Muscle pain active 2 [facility] PENICILLIN Propensity to adverse reactions to drug (finding) Eruption, Throat irritation active 2 [facility] Immunizations Combined list of available immunizations from the [facility] and [facility] facilities. Immunization Series Date Given Administered By Site Reaction Lot Number CVX Code Drug [employer] W[employer] Tester Status Comments Source INFLUENZA, UNSPECIFIED FORMULATION 2010 88 complet ed [facility] N TDAP 2008 115 complet ed [facility] [place] Social History Combined list of available smoking, tobacco, and other social history from [facility] facilities. Social History Type Response Date Comment Sour e Tobacco smoking status NHIS LIFETIME NON-USER OF TOBACCO 10/24/2011 [facility]
--- OUTSIDE RECORDS SUMMARY | 2024-07-03 16:03 | XMS_ITS | Patient Health Summary ---
Author Organization [facility] [employer] Address [address] [place] [address] Care Team Providers Care Pharmacy Data Analyst Name Role Phone Mohsen Sanford MD Primary Care Provider [phone] Note from [facility],non-owned Affiliates and Associated Physician Practices is amultiple site organization consisting of ambulatory clinics and hospital sitesin [place], [place], [place] and [place]. This disclosure is being madepursuant to the Care Everywhere program and may not contain all information available regarding this patient. Last updated 18.[facility] Allergies * Azithromycin(Unknown) * Penicillins(Anaphylaxis) -High Criticality Medications * Be aware that medications may not be up to date on this document. Alwaysverify current medications with the patient. * fluticasone propionate (FLONASE) 50 MCG/ACT nasal spray [place] 2 sprays into each nostril once daily * naproxen (NAPROSYN) 500 MG tablet(Started 11/09/2020) Take 500 mg by mouth 2 times daily as needed For pain. * metFORMIN ER 24hr (GLUCOPHAGE XR) 500 MG tablet(Started 12/10/2020) Take 1,000 mg by mouth 2 times daily * lisinopril (PRINIVIL; ZESTRIL) 40 MG tablet(Started 12/10/2020) Take 40 mg by mouth once daily * escitalopram (LEXAPRO) 10 MG tablet(Started 11/02/2020) Take 10 mg by mouth once daily * atorvastatin (LIPITOR) 40 MG tablet(Started 11/09/2020) Take 40 mg by mouth once daily * folic acid (FOLVITE) 1 MG tablet(Started 05/18/2021) Take 1 (one) tablet by mouth once daily 4 refills by 05/18/2022 * methotrexate 2.5 MG tablet(Started 09/15/2021) Take 6 (six) tablets by mouth every 7 days 2 refills by 09/15/2022 * methotrexate 2.5 MG tablet(Started 09/19/2021) TAKE 6 TABLETS BY MOUTH EVERY 7 DAYS 1 refill by 09/19/2022 Social History Tobacco Use Types Packs/Day Years Used Date Smoking Tobacco: Never Smokeless Tobacco: Never Sex and Gender Information Value Date Recorded Sex Assigned at Not on file Gender Identity Not on file Sexual Orientation Not on file Last Filed Vital Signs Vital Sign Reading Time Taken Comments Blood Pressure 154/90 12/21/2020 2:09 PM CDT Pulse 104 12/21/2020 2:09 PM CDT Temperature 36.8 C (98.3 F) 05/19/2019 8:35 AM 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 Respiratory Rate 18 12/21/2020 2:09 PM CDT Oxygen Saturation 98% 12/21/2020 2:09 PM CDT Inhaled Oxygen Concentration - - Weight 132.5 kg (292 lb) 12/21/2020 2:09 PM CDT Height 175.3 cm (5' 9 ) 12/21/2020 2:09 PM CDT Body Mass Index 43.12 12/21/2020 2:09 PM CDT Procedures * C-REACTIVE PROTEIN(Performed 08/10/2021) Performed for Arthralgia, unspecified joint * ERYTHROCYTE SEDIMENTATION RATE(Performed 08/10/2021) Performed for Arthralgia, unspecified joint * HEMOGLOBIN A1C(Performed 08/10/2021) Performed for Arthralgia, unspecified joint * VITAMIN B12 FOLATE PANEL(Performed 08/10/2021) Performed for Arthralgia, unspecified joint * PROSTATE SPECIFIC ANTIGEN SCREEN(Performed 08/10/2021) Performed for Arthralgia, unspecified joint * TSH(Performed 08/10/2021) Performed for Arthralgia, unspecified joint * URINALYSIS W/MICROSCOPIC NO CULTURE(Performed 08/10/2021) Performed for Arthralgia, unspecified joint * CBC W/O DIFFERENTIAL(Performed 08/10/2021) Performed for Arthralgia, unspecified joint * COMPREHENSIVE METABOLIC PANEL(Performed 08/10/2021) Performed for Arthralgia, unspecified joint * MICROALB/CREAT RATIO URINE RANDOM PANEL(Performed 08/10/2021) Performed for Arthralgia, unspecified joint * LIPID PROFILE(Performed 08/10/2021) Performed for Arthralgia, unspecified joint * C-REACTIVE PROTEIN(Performed 05/17/2021) * CBC W AUTO DIFFERENTIAL(Performed 05/17/2021) * URINALYSIS W/MICROSCOPIC REFLEX TO CULTURE(Performed 05/17/2021) * ERYTHROCYTE SEDIMENTATION RATE(Performed 05/17/2021) * COMPREHENSIVE METABOLIC PANEL(Performed 05/17/2021) * CULTURE URINE REFLEXED III(Performed 05/17/2021) * COMPREHENSIVE METABOLIC PANEL(Performed 03/13/2021) Performed for Rheumatoid arthritis involving left wrist with positive rheumatoid factor (HCC), Arthralgia, unspecified joint, High risk medication use, Long-term use of immunosuppressant medication * URINALYSIS W/MICROSCOPIC REFLEX TO CULTURE(Performed 03/13/2021) Performed for Rheumatoid arthritis involving left wrist with positive rheumatoid factor (HCC), Arthralgia, unspecified joint, High risk medication use, Long-term use of immunosuppressant medication * ERYTHROCYTE SEDIMENTATION RATE(Performed 03/13/2021) Performed for Rheumatoid arthritis involving left wrist with positive rheumatoid factor (HCC), Arthralgia, unspecified joint, High risk medication use, Long-term use of immunosuppressant medication * C-REACTIVE PROTEIN(Performed 03/13/2021) Performed for Rheumatoid arthritis involving left wrist with positive rheumatoid factor (HCC), Arthralgia, unspecified joint, High risk medication use, Long-term use of immunosuppressant medication * CBC W AUTO DIFFERENTIAL(Performed 03/13/2021) Performed for Rheumatoid arthritis involving left wrist with positive rheumatoid factor (HCC), Arthralgia, unspecified joint, High risk medication use, Long-term use of immunosuppressant medication * CULTURE URINE REFLEXED I(Performed 03/13/2021) * MOY BLOOD SCREEN W/REFLEX TITER(Performed 12/21/2020) Performed for Arthralgia, unspecified joint, High risk medication use, Encounter for therapeutic drug level monitoring, Long-term use of immunosuppressant medication * RHEUMATOID FACTOR BLOOD QUANTITATIVE(Performed 12/21/2020) Performed for Arthralgia, unspecified joint, High risk medication use, Encounter for therapeutic drug level monitoring, Long-term use of immunosuppressant medication * CYCLIC CITRUL PEPTIDE ANTIBODY IGG/IGA (CCP)(Performed 12/21/2020) Performed for Arthralgia, unspecified joint, High risk medication use, Encounter for therapeutic drug level monitoring, Long-term use of immunosuppressant medication * COMPLEMENT C4(Performed 12/21/2020) Performed for Arthralgia, unspecified joint, High risk medication use, Encounter for therapeutic drug level monitoring, Long-term use of immunosuppressant medication * COMPLEMENT C3(Performed 12/21/2020) Performed for Arthralgia, unspecified joint, High risk medication use, Encounter for therapeutic drug level monitoring, Long-term use of immunosuppressant medication * HEPATITIS B CORE ANTIBODY TOTAL(Performed 12/21/2020) Performed for Arthralgia, unspecified joint, High risk medication use, Encounter for therapeutic drug level monitoring, Long-term use of immunosuppressant medication * HEPATITIS B SURFACE ANTIBODY(Performed 12/21/2020) Performed for Arthralgia, unspecified joint, High risk medication use, Encounter for therapeutic drug level monitoring, Long-term use of immunosuppressant medication * HEPATITIS C ANTIBODY(Performed 12/21/2020) Performed for Arthralgia, unspecified joint, High risk medication use, Encounter for therapeutic drug level monitoring, Long-term use of immunosuppressant medication * URINALYSIS W/MICROSCOPIC NO CULTURE(Performed 12/21/2020) Performed for Arthralgia, unspecified joint, High risk medication use, Encounter for therapeutic drug level monitoring, Long-term use of immunosuppressant medication * ERYTHROCYTE SEDIMENTATION RATE(Performed 12/21/2020) Performed for Arthralgia, unspecified joint, High risk medication use, Encounter for therapeutic drug level monitoring, Long-term use of immunosuppressant medication * C-REACTIVE PROTEIN(Performed 12/21/2020) Performed for Arthralgia, unspecified joint, High risk medication use, Encounter for therapeutic drug level monitoring, Long-term use of immunosuppressant medication * COMPREHENSIVE METABOLIC PANEL(Performed 12/21/2020) Performed for Arthralgia, unspecified joint, High risk medication use, Encounter for therapeutic drug level monitoring, Long-term use of immunosuppressant medication * CBC W AUTO DIFFERENTIAL(Performed 12/21/2020) Performed for Arthralgia, unspecified joint, High risk medication use, Encounter for therapeutic drug level monitoring, Long-term use of immunosuppressant medication * QUANTIFERON-TB GOLD PLUS 4-TUBE(Performed 12/21/2020) Performed for Pain in joint, multiple sites, Encounter for therapeutic drug monitoring, High risk medications (not anticoagulants) long-term use, Encounter for long-term (current) use of medications Results * C-REACTIVE PROTEIN (08/10/2021 7:12 AM CDT) Only the most recent of4 resultswithin the time period is included. C-Reactive Protein 3.3 <8.0 mg/L [facility] Comment: REPORT COMMENT: MULTIPLE COLLECTION TIMES FOR SAME TEST TYPE. Test Performed at: [employer] [place] [address] BLUE DINH DO,MPH 08/10/2021 7:12 AM CDT 08/10/2021 7:13 AM CDT Meg Asher MD LAB - CHEMISTRY ORDERABLES Performing Organization Address [facility] Co de Phone Number [facility] [address] [place] [address] * ERYTHROCYTE SEDIMENTATION RATE (08/10/2021 7:12 AM CDT) Only the most recent of4 resultswithin the time period is included. Erythrocyte Sedimentation Rate Westergren 2 < OR = 20 mm/h [facility] Comment: Test Performed at: [facility] [facility] [place] [address] BLUE DINH DO,MPH 08/10/2021 7:12 AM CDT 08/10/2021 7:13 AM CDT Meg Asher MD LAB - HEMATOLOG Y ORDERABLES Performing Organization Address [facility] Co de Phone Number [facility] [address] [place] [address] * URINALYSIS W/MICROSCOPIC NO CULTURE (08/10/2021 7:08 AM CDT) Only the most recent of2 resultswithin the time period is included. Color UA YELLOW YELLOW [facility] Appearance CLEAR CLEAR [facility] Specific [place] UA 1.022 1.001 - 1.035 [facility] pH UA 6.5 5.0 - 8.0 [facility] Glucose UA NEGATIVE NEGATIVE [facility] Bilirubin UA NEGATIVE NEGATIVE [facility] Ketone UA NEGATIVE NEGATIVE [facility] Blood UA NEGATIVE NEGATIVE [facility] Protein UA NEGATIVE NEGATIVE [facility] Nitrite UA NEGATIVE NEGATIVE [facility] Leukocyte UA NEGATIVE NEGATIVE [facility] WBC UA NONE SEEN < OR = 5 /HPF [facility] RBC UA NONE SEEN < OR = 2 /HPF [facility] Epithelial Cell UA NONE SEEN < OR = 5 /HPF [facility] Bacteria UA NONE SEEN NONE SEEN /HPF [facility] Hyaline Casts NONE SEEN NONE SEEN /LPF [facility] Comment: Test Performed at: [place] [address] BLUE DINH DO,MPH 08/10/2021 7:08 AM CDT 08/10/2021 7:09 AM CDT Mohsen Sanford MD LAB - URINALYSIS ORD ERABLES Performing Organization Address City/[facility] de Phone Number [place] [address] [phone] [place] [address] * MICROALB/CREAT RATIO URINE RANDOM PANEL (08/10/2021 7:08 AM CDT) Creatinine Urine 139 20 - 320 mg/dL [facility] Microalbumin Urine 0.9 mg/dL [facility] Comment: Reference Range Not established Microalbumin/Creat inine Ratio 6 <30 mcg/mg creat [facility] Comment: The ADA defines abnormalities in albumin excretion as follows: Albuminuria Category Result (mcg/mg creatinine) Normal to Mildly increased <30 Moderately increased 30-299 Severely increased > OR = 300 The ADA recommends that at least two of three specimens collected within a 3-6 month period be abnormal before considering a patient to be within a diagnostic category. Test Performed at: [employer] [facility] [facility] [address] BLUE DINH DO,MPH 08/10/2021 7:08 AM CDT 08/10/2021 7:09 AM CDT Mohsen Sanford MD LAB - URINE CHEMISTR Y ORDERABLES Performing Organization Address City/State/[facility] Co de Phone Number [address] [phone] [place] [address] * (ABNORMAL) HEMOGLOBIN A1C (08/10/2021 7:08 AM CDT) Pathologist [facility] Hemoglobin A1c 6.1(H) <5.7 % of total Hgb [facility] Comment: For someone without known diabetes, a hemoglobin A1c value between 5.7% and 6.4% is consistent with prediabetes and should be confirmed with a follow-up test. For someone with known diabetes, a value <7% indicates that their diabetes is well controlled. A1c targets should be individualized based on duration of diabetes, age, comorbid conditions, and other considerations. This assay result is consistent with an increased risk of diabetes. Currently, no consensus exists regarding use of hemoglobin A1c for diagnosis of diabetes for children. REPORT COMMENT: FASTING:YES Test Performed at: [facility] [address] GABE PHILLIPS MD 08/10/2021 7:08 AM CDT 08/10/2021 7:09 AM CDT Mohsen Sanford MD LAB - CHEMISTRY [place] Performing Organization Address [facility] Co de Phone Number [place] [phone] [place] [address] * CBC W/O DIFFERENTIAL (08/10/2021 7:08 AM CDT) Pathologist [facility] White Blood Cell Count 9.7 3.8 - 10.8 Thousand/u L [facility] RBC 4.75 4.20 - 5.80 Million/uL [facility] Hemoglobin 14.6 13.2 - 17.1 g/dL [facility] Hematocrit 44.2 38.5 - 50.0 % [facility] MCV 93.1 80.0 - 100.0 fL [facility] MCH 30.7 27.0 - 33.0 pg [facility] MCHC 33.0 32.0 - 36.0 g/dL [facility] RDW 12.8 11.0 - 15.0 % [facility] Platelet Count 293 140 - 400 Thousand/u L [facility] MPV 9.9 7.5 - 12.5 fL [facility] Comment: Test Performed at: [facility] [address] [place] [address] BLUE DINH DO,MPH 08/10/2021 7:08 AM CDT 08/10/2021 7:09 AM CDT Mohsen Sanford MD LAB - HEMATOLOGY ORD ERABLES [facility] [address] [place] [address] * (ABNORMAL) COMPREHENSIVE METABOLIC PANEL (08/10/2021 7:08 AM CDT) Only the most recent of4 resultswithin the time period is included. Glucose 142(H) 65 - 99 mg/dL [facility] Comment: Fasting reference interval For someone without known diabetes, a glucose value >125 mg/dL indicates that they may have diabetes and this should be confirmed with a follow-up test. BUN 15 7 - 25 mg/dL [facility] Creatinine 0.69(L) 0.70 - 1.33 mg/dL [facility] Comment: For patients >49 years of age, the reference limit for Creatinine is approximately 13% higher for people identified as -Uzbek. eGFR by MDRD 108 > OR = 60 mL/min/1. 73m2 [facility] eGFR by MDRD 125 > OR = 60 mL/min/1. 73m2 [facility] BUN/Creatinine Ratio 22 6 - 22 (calc) [facility] Sodium 139 135 - 146 mmol/L [facility] Potassium 4.4 3.5 - 5.3 mmol/L [facility] Chloride 102 98 - 110 mmol/L [facility] CO2 27 20 - 32 mmol/L [facility] Calcium 9.2 8.6 - 10.3 mg/dL [facility] Protein Total 6.8 6.1 - 8.1 g/dL [facility] Albumin 4.2 3.6 - 5.1 g/dL [facility] Globulin Total 2.6 1.9 - 3.7 g/dL (calc) [facility] Albumin/Globulin Ratio 1.6 1.0 - 2.5 (calc) [facility] Bilirubin Total 0.5 0.2 - 1.2 mg/dL [facility] Alkaline Phosphatase 62 35 - 144 U/L [facility] AST 17 10 - 35 U/L [facility] ALT 32 9 - 46 U/L [facility] Comment: Test Performed at: [facility] [address] [place] [address] BLUE DINH DO,MPH 08/10/2021 7:08 AM CDT 08/10/2021 7:09 AM CDT Mohsen Sanford MD LAB - CHEMISTRY [place] Performing Organization Address [facility] de Phone Number [facility] [address] [place] [phone] * PROSTATE SPECIFIC ANTIGEN SCREEN (08/10/2021 7:08 AM CDT) Pathologist [facility] PSA 0.49 < OR = 4.00 ng/mL DANIELLE Comment: The total PSA value from this assay system is standardized against the WHO standard. The test result will be approximately 20% lower when compared to the equimolar-standardized total PSA ([place]). Comparison of serial PSA results should be interpreted with this fact in mind. This test was performed using the Siemens chemiluminescent method. Values obtained from different assay methods cannot be used interchangeably. PSA levels, regardless of value, should not be interpreted as absolute evidence of the presence or absence of disease. Test Performed at: [place] [address] BLUE DINH DO,MPH 08/10/2021 7:08 AM CDT 08/10/2021 7:09 AM CDT Mohsen Sanford MD LAB - CHEMISTRY [place] Performing Organization Address [facility] de Phone Number [address] [phone] [place] [address] * VITAMIN B12 FOLATE PANEL (08/10/2021 7:08 AM CDT) Pathologist [facility] Vitamin B12 385 200 - 1100 pg/mL [facility] Comment: Please Note: Although the reference range for vitamin B12 is 200-1100 pg/mL, it has been reported that between 5 and 10% of patients with values between 200 and 400 pg/mL may experience neuropsychiatric and hematologic abnormalities due to occult B12 deficiency; less than 1% of patients with values above 400 pg/mL will have symptoms. Folate 13.1 ng/mL [facility] Comment: Reference Range Low: <3.4 Borderline: 3.4-5.4 Normal: >5.4 Test Performed at: [facility] [address] [place] [address] BLUE DINH DO,MPH 08/10/2021 7:08 AM CDT 08/10/2021 7:09 AM CDT Mohsen Sanford MD LAB - CHEMISTRY [place] Performing Organization Address [facility] de Phone Number [facility] [id number] [place] [address] * TSH (08/10/2021 7:08 AM CDT) TSH 2.19 0.40 - 4.50 mIU/L [facility] Comment: Test Performed at: [facility] [address] [place] [address] BLUE DINH DO,MPH 08/10/2021 7:08 AM CDT 08/10/2021 7:09 AM CDT Mohsen Sanford MD LAB - CHEMISTRY [place] Performing Organization Address [facility] [place] [address] * (ABNORMAL) LIPID PROFILE (08/10/2021 7:08 AM CDT) Cholesterol 156 <200 mg/dL [facility] HDL Cholesterol 44 > OR = 40 mg/dL [facility] Triglycerides 173(H) <150 mg/dL [facility] LDL Calculated 85 mg/dL (calc) [facility] Comment: Reference range: <100 Desirable range <100 mg/dL for primary prevention; <70 mg/dL for patients with CHD or diabetic patients with > or = 2 CHD risk factors. LDL-C is now calculated using the Kali-Jose G calculation, which is a validated novel method providing better accuracy than the Friedewald equation in the estimation of LDL-C. Kali SS et al. EDA. 2013;310(19): 5349-6628 (http://education.twenty5media.com/faq/IOX278) CHOL/HDLC RATIO 3.5 <5.0 (calc) [facility] Non HDL Cholesterol 112 <130 mg/dL (calc) [facility] Comment: For patients with diabetes plus 1 major ASCVD risk factor, treating to a non-HDL-C goal of <100 mg/dL (LDL-C of <70 mg/dL) is considered a therapeutic option. Test Performed at: [facility] [address] [address] [facility] [place] [address] BLUE DINH DO,MPH 08/10/2021 7:08 AM CDT 08/10/2021 7:09 AM CDT Mohsen Sanford MD LAB - CHEMISTRY ORDMynor [place] Performing Organization Address [facility]/ZIP Co de Phone Number [address] [address] * CULTURE URINE REFLEXED III (05/17/2021 10:17 AM NUMERICAL 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) Reflexive Urine Culture See Below [facility] Comment: NO CULTURE INDICATED Test Performed at: [facility] [address] GABE PHILLIPS MD 05/17/2021 10:1 7 AM NUMERICAL 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 05/17/2021 10:17 AM NUMERICAL 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 Meg Asher MD LAB - MICROBIOL OGY ORDERABLES Performing Organization Address [facility] Co de Phone Number [address] [address] * (ABNORMAL) URINALYSIS W/MICROSCOPIC REFLEX TO CULTURE (05/17/2021 10:17 AM NUMERICAL 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) Only the most recent of2 resultswithin the time period is included. Color UA YELLOW YELLOW [facility] Appearance CLEAR CLEAR [facility] Specific [place] UA 1.016 1.001 - 1.035 [facility] pH UA 6.5 5.0 - 8.0 [facility] Glucose UA NEGATIVE NEGATIVE [facility] Bilirubin UA NEGATIVE NEGATIVE [facility] Ketone UA NEGATIVE NEGATIVE [facility] Blood UA TRACE(A) NEGATIVE [facility] Protein UA NEGATIVE NEGATIVE [facility] Nitrite NEGATIVE NEGATIVE [facility] Leukocyte Esterase NEGATIVE NEGATIVE [facility] WBC UA NONE SEEN < OR = 5 /HPF [facility] RBC UA NONE SEEN < OR = 2 /HPF [facility] Epithelial Cell UA NONE SEEN < OR = 5 /HPF [facility] Transitional Epithelial Cells [facility] Renal Epithelial Cells [facility] Bacteria UA NONE SEEN NONE SEEN /HPF [facility] Calcium Oxalate Crystals [facility] Triple Phosphate Crystals [facility] Uric Acid Crystals [facility] Amorphous UA [facility] Crystals UA [facility] Hyaline Casts NONE SEEN NONE SEEN /LPF [facility] Comment: Test Performed at: [facility] [address] GABE PHILLIPS MD Granular Casts [facility] Casts UA [facility] Yeast [facility] Comments [facility] Note [facility] Comment: Test Performed at: [facility] [address] GABE PHILLIPS MD 05/17/2021 10:1 7 AM NUMERICAL 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 05/17/2021 10:17 AM NUMERICAL 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 Meg Asher MD LAB - URINALYSI S ORDERABLES [address] [address] * (ABNORMAL) CBC WITH DIFFERENTIAL (05/17/2021 10:17 AM NUMERICAL 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) Only the most recent of3 resultswithin the time period is included. White Blood Cell Count 13.3(H) 3.8 - 10.8 Thousand/ uL [facility] RBC 4.73 4.20 - 5.80 Million/u L [facility] Hemoglobin 14.8 13.2 - 17.1 g/dL [facility] Hematocrit 43.5 38.5 - 50.0 % [facility] MCV 92.0 80.0 - 100.0 fL [facility] MCH 31.3 27.0 - 33.0 pg [facility] MCHC 34.0 32.0 - 36.0 g/dL [facility] RDW 13.0 11.0 - 15.0 % [facility] Platelet Count 317 140 - 400 Thousand/ uL [facility] MPV 10.5 7.5 - 12.5 fL [facility] Neutrophil Absolute 9150(H) 1500 - 7800 cells/uL [facility] Lymphocytes Absolute 2846 850 - 3900 cells/uL [facility] Absolute Monocytes 904 200 - 950 cells/uL [facility] Eosinophils Absolute 333 15 - 500 cells/uL [facility] Basophils Absolute 67 0 - 200 cells/uL [facility] Granulocytes % 68.8 % [facility] Lymphocytes % 21.4 % [facility] Monocytes % 6.8 % [facility] Eosinophils % 2.5 % [facility] Basophils % 0.5 % [facility] Comment: Test Performed at: [facility] [address] GABE PHILLIPS MD 05/17/2021 10:1 7 AM NUMERICAL 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 05/17/2021 10:17 AM NUMERICAL 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 Meg Asher MD LAB - HEMATOLOG Y ORDERABLES Performing Organization Address [facility] Co de Phone Number [facility] [address] [place] [address] * CULTURE URINE REFLEXED I (03/13/2021 10:00 AM CDT) Reflexive Urine Culture See Below [facility] Comment: NO CULTURE INDICATED Test Performed at: [employer] [address] [place] [address] BLUE DINH DO,MPH 03/12/2021 7:0 4 AM CDT Meg Asher MD LAB - MICROBIOL OGY ORDERABLES Performing Organization Address [facility] de Phone Number [facility] [address] [place] [address] * QUANTIFERON-TB GOLD PLUS 4-TUBE (12/21/2020 3:09 PM CDT) Pathologist [facility] QuantiFERON NIL 0.02 IU/mL 6:48 AM CDT [employer] ([facility]) Comment: Performed By: [employer] [address] [place] [address] Systems Programmer Analyst: Yudelka Dueñas MD QuantiFERON TB Gold Plus Negative Negative 12/25/2020 6:48 AM CDT [employer] [facility]) Comment: Interpretive Data: Quantiferon TB Gold Plus Interferon gamma release is measured for specimens from each of the four collection tubes. A qualitative result (Negative, Positive, or Indeterminate) is based on interpretation of the four values, NIL, MITOGEN minus NIL (MITOGEN-NIL), TB1 minus NIL (TB1-NIL), and TB2 minus NIL (TB2-NIL). The NIL value represents nonspecific reactivity produced by the patient specimen. The MITOGEN-NIL value serves as the positive control for the patient specimen, demonstrating successful lymphocyte activity. The TB1-NIL tube specifically detects CD4+ lymphocyte reactivity, specifically stimulated by the TB1 antigens. The TB2-NIL tube detects both CD4+ and CD8+ lymphocyte reactivity, stimulated by TB2 antigens. An overall Negative result does not completely rule out TB infection. A false-positive result in the absence of other clinical evidence of TB infection is not uncommon. Refer to: Updated Guidelines for Using Interferon Gamma Release Assays to Detect Mycobacterium tuberculosis Infection --- [place], 2010 (http://www.cdc.gov/mmwr/preview/mmwrhtml/qa2004o6.htm), for more information concerning test performance in low-prevalence populations and use in occupational screening. QuantiFERON Plus TB1 Minus NIL 0.01 0.00 - 0.34 IU/mL 12/25/2020 6:48 AM CDT [facility] ([facility]) QuantiFERON Plus TB2 Minus NIL 0.00 0.00 - 0.34 IU/mL 12/25/2020 6:48 AM CDT [facility] ([facility]) QuantiFERON Mitogen Minus NIL > 10.00 IU/mL 12/25/2020 6:48 AM CDT [facility]) Blood BLOOD SPECIMEN / Unknown Lab Venipuncture / Unknown 12/21/2020 3:09 PM CDT 12/21/2020 3:20 PM CDT Meg Asher MD LAB - CHEMISTRY ORDERABLES [facility]) [address] [place] [address] * CYCLIC CITRUL PEPTIDE ANTIBODY IGG/IGA (CCP) (12/21/2020 3:09 PM CDT) [facility] CCP Antibodies IgG/IgA 4 0 - 19 units 12/27/2020 12:06 AM CDT [facility] ([facility]) Comment: Negative <20 Weak positive 20 - 39 Moderate positive 40 - 59 Strong positive >59 Blood BLOOD SPECIMEN / Unknown Lab Venipuncture / Unknown 12/21/2020 3:09 PM CDT 12/21/2020 3:20 PM CDT Narrative [facility] ([facility]) - 12/27/2020 12:06 AM CDT Performed at: [address] [place] [address] [id number] Supervisor Rolling Room: Ac Allen MD, Phone: [phone] Meg Asher MD LAB - SEROLOGY ORDERABLES [facility] ([facility]) [address] [place] [address], [facility] * (ABNORMAL) RHEUMATOID FACTOR BLOOD QUANTITATIVE (12/21/2020 3:09 PM CDT) Rheumatoid Factor 67(H) <30 IU/mL 12/21/2020 4:53 PM CDT [facility] Rheumatoid Factor Screen Positive( A) Negative 12/21/2020 4:53 PM CDT [facility] Blood BLOOD SPECIMEN / Unknown Lab Venipuncture / Unknown 12/21/2020 3:09 PM CDT 12/21/2020 3:20 PM CDT Meg Asher MD LAB - CHEMISTRY ORDERABLES Performing Organization Address City/[facility]/ZIP Co de Phone Number [address] [address], [facility] [phone] * MOY BLOOD SCREEN W/REFLEX TITER (12/21/2020 3:09 PM CDT) MOY IgG None Detected None Detected 12/23/2020 7:37 AM CDT [employer] ([facility]) Comment: If suspicion of connective tissue disease is strong and MOY EIA is negative, consider testing for MOY by IFA ([id number]). INTERPRETIVE INFORMATION: Anti-Nuclear Antibodies (MOY), IgG by ABE Antinuclear Antibodies (MOY), IgG by ABE: MOY specimens are screened using enzyme-linked immunosorbent assay (ABE) methodology. All ABE results reported as Detected are further tested by indirect fluorescent assay (IFA) using HEp-2 substrate with an IgG-specific conjugate. The MOY ABE screen is designed to detect antibodies against dsDNA, histones, SS-A (Ro), SS-B (La), Boyle, Boyle/RADIOLOGIC TECHNOLOGY PROGRAM DIRECTOR, Scl-70, Eugenia-1, centromeric proteins, other antigens extracted from the HEp-2 cell nucleus. MOY ABE assays have been reported to have lower sensitivities than MOY IFA for systemic autoimmune rheumatic diseases (SARD). Negative results do not necessarily rule out SARD. Performed By: [employer] [address] [place] [address] Systems Programmer Analyst: Yudelka Dueñas MD Blood BLOOD SPECIMEN / Unknown Lab Venipuncture / Unknown 12/21/2020 3:09 PM CDT 12/21/2020 3:20 PM CDT Meg Asher MD LAB - CHEMISTRY ORDERABLES Performing Organization Address City/[facility]/ZIP Co de Phone Number [facility] ([facility]) [address] [place], [place] [address] * COMPLEMENT C4 (12/21/2020 3:09 PM CDT) Complement C4 31 15 - 57 mg/dL 12/21/2020 3:51 PM CDT [facility] Blood BLOOD SPECIMEN / Unknown Lab Venipuncture / Unknown 12/21/2020 3:09 PM CDT 12/21/2020 3:22 PM CDT Meg Asher MD LAB - SEROLOGY ORDERABLES [facility] [address] [place] [address], [facility] [phone] * HEPATITIS B SURFACE ANTIBODY (12/21/2020 3:09 PM CDT) Pathologist [facility] Hepatitis B Virus Surface Antibody Non-react katie Non-react katie 12/21/2020 5:14 PM CDT [facility] Comment: < 8 mIU/mL Hepatitis B surface Antibody (HBsAb). Nonreactive for HBsAb - individual is considered not immune to Hepatitis B Virus infection. Hepatitis B Surface Antibody Quantitative 0.1 <8.0 mIU/mL 12/21/2020 5:14 PM CDT [facility] Comment: Hepatitis B Surface Antibody Numeric Result Interpretation: Nonreactive: <8.0 mIU/mL Indeterminate: 8.0 - 12.0 mIU/mL Reactive: >12.0 mIU/mL Blood BLOOD SPECIMEN / Unknown Lab Venipuncture / Unknown 12/21/2020 3:09 PM CDT 12/21/2020 3:20 PM CDT Meg Asher MD LAB - CHEMISTRY ORDERABLES [address] [address], [place] [phone] * HEPATITIS B CORE ANTIBODY (12/21/2020 3:09 PM CDT) HBc Antibody Total Non-reacti ve Non-reacti ve 12/21/2020 5:14 PM CDT [facility] Blood BLOOD SPECIMEN / Unknown Lab Venipuncture / Unknown 12/21/2020 3:09 PM CDT 12/21/2020 3:20 PM CDT Meg Asher MD LAB - CHEMISTRY ORDERABLES Performing Organization Address [facility] Co de Phone Number [address] [address], [place] [phone] * HEPATITIS C ANTIBODY (12/21/2020 3:09 PM CDT) Pathologist [facility] Hepatitis C Antibody Non-react katie Non-reac tive 12/21/2020 5:14 PM CDT [facility] Comment:Hepatitis C Antibody screen indicates no serologic evidence of past or current infection with Hepatitis C Virus. Patients with unexplained liver disease who are immunocompromised or suspected of having acute Hepatitis C infection may benefit from Nucleic Acid Test (KENZIE) for Hepatitis C Viral RNA to confirm Hepatitis C status. Blood BLOOD SPECIMEN / Unknown Lab Venipuncture / Unknown 12/21/2020 3:09 PM CDT 12/21/2020 3:20 PM CDT Meg Asher MD LAB - CHEMISTRY ORDERABLES Performing Organization Address City/[facility]/ZIP Co de Phone Number [address] [address], [place] [phone] * COMPLEMENT C3 (12/21/2020 3:09 PM CDT) Complement C3 125 82 - 193 mg/dL 12/21/2020 3:51 PM CDT [facility] Blood BLOOD SPECIMEN / Unknown Lab Venipuncture / Unknown 12/21/2020 3:09 PM CDT 12/21/2020 3:22 PM CDT Meg Asher MD LAB - CHEMISTRY ORDERABLES Performing Organization Address [facility]/State/[facility] Co de Phone Number [facility] [address] [place] [phone], [facility] [phone] Care Teams Pharmacy Data Analyst Relationship Specialty Start Date End Date Mohsen Sanford MD PCP - General Family Medicine 05/18/16
--- OUTSIDE RECORDS SUMMARY | 2024-07-03 16:03 | XMS_ITS | Referral Summary ---
Author Organization [facility] Address [address] [place] [address] Care Team Providers Care Wildlife Manager Name Role Phone Mohsen Sanford MD Primary Care Provider [phone] Source Comments [facility],non-owned Affiliates and Associated Physician Practices is amultiple site organization consisting of ambulatory clinics and hospital sitesin [place], [place], [place] and [place]. This disclosure is being madepursuant to the Care Everywhere program and may not contain all information available regarding this patient. Last updated 18.[facility] Allergies Active Allergy Reactions Criticality Noted Date Comments Azithromycin Unknown 05/18/2016 Penicillins Anaphylaxis High 05/18/2016 Medications * Be aware that medications may not be up to date on this document. Alwaysverify current medications with the patient. Medication Sig Dispensed Refills Start Date End Date Status fluticasone propionate (FLONASE) 50 MCG/ACT nasal spray [place] 2 sprays into each nostril once daily Active naproxen (NAPROSYN) 500 MG tablet Take 500 mg by mouth 2 times daily as needed For pain. 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) Take 6 (six) tablets by mouth every 7 days 24 tablet 2 09/15/2021 Active methotrexate 2.5 MG tablet TAKE 6 TABLETS BY MOUTH EVERY 7 DAYS 16 tablet 1 09/19/2021 Active Social History Tobacco Use Types Packs/Day Years [...] 36.8 C (98.3 F) 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 Respiratory Rate 18 12/21/2020 2:09 PM CDT Oxygen Saturation 98% 12/21/2020 2:09 PM CDT Inhaled Oxygen Concentration - - Weight 132.5 kg (292 lb) 12/21/2020 2:09 PM CDT Height 175.3 cm (5' 9 ) 12/21/2020 2:09 PM CDT Body Mass Index 43.12 12/21/2020 2:09 PM CDT Plan of Treatment Not on file Procedures Procedure Name Priority Date/Time Associated Diagnosis Comments HEPATITIS C ANTIBODY Routine 12/21/2020 3:09 PM CDT Arthralgia, unspecified joint High risk medication use Encounter for therapeutic drug level monitoring Long-term use of immunosuppressant medication from Last 3 Months or Most Recently Relevant to Health Maintenance Results * HEPATITIS C ANTIBODY (12/21/2020 3:09 PM CDT) Hepatitis C Antibody Non-react katie Non-reac tive 12/21/2020 5:14 PM CDT [facility] Comment:Hepatitis C Antibody screen indicates no [...] LAB - CHEMISTRY ORDERABLES Performing Organization Address City/[facility] Co de Phone Number [facility] [address] [place] [address], [facility] [phone] from Last 3 Months or Most Recently Relevant to Health Maintenance Care Teams Wildlife Manager Relationship Specialty Start Date End Date Mohsen Sanford MD PCP - General Family Medicine 05/18/16
--- OUTSIDE RECORDS SUMMARY | 2024-07-03 16:04 | XMS_ITS | Clinical Summary ---
Author Organization [facility] Address [address] [place] [address] Care Team Providers Care Elevator Runner Name Role Phone Mohsen Sanford MD Primary Care Provider [phone] [facility],non-owned Affiliates and Associated Physician Practices is amultiple site organization consisting of ambulatory clinics and hospital sitesin [place], [place], [place] and [place]. This disclosure is being madepursuant to the Care Everywhere program and may not contain all information available regarding this patient. Last updated 18.[facility] Allergies Active Allergy Reactions Criticality Noted Date Comments Azithromycin Unknown 05/18/2016 Penicillins Anaphylaxis High 05/18/2016 Medications * Be aware that medications may not be up to date on this document. Alwaysverify current medications with the patient. 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 Respiratory Rate 18 12/21/2020 2:09 PM CDT Oxygen Saturation 98% 12/21/2020 2:09 PM CDT Inhaled Oxygen Concentration - - Weight 132.5 kg (292 lb) 12/21/2020 2:09 PM CDT Height 175.3 cm (5' 9 ) 12/21/2020 2:09 PM CDT Body Mass Index 43.12 12/21/2020 2:09 PM CDT Plan of Treatment Health Maintenance Due Date Last Done Comments COLOGUARD (AGES 45-75) - COL ON CA SCREENING 1965 COLON MONITORING 1967 COLONOSCOPY - COLON CA SCREENING 1967 CT COLONOGRAPHY - COLON CA SCREENING 1965 Colorectal Cancer Screening 1965 FIT - COLON CA SCREENING 1967 FLEX SIG - COLON CA SCREENING 1967 HIV SCREENING 1982 DTAP/TDAP/TD VACCINES (1 - Tdap) 1986 HEPATITIS B VACCINE (1 of 3 - 19+ 3-dose series) 1986 PNEUMOCOCCAL VACCINE 50+ (1 of 1 - PCV) 2017 ZOSTER VACCINE (1 of 2) 2017 COVID-19 VACCINE (2023-2 5 season) 2024 INFLUENZA VACCINE (#1) 2024 DEPRESSION SCREENING 05/27/2024 HEPATITIS C SCREENING Completed 12/21/2020 HIB VACCINE Aged Out No longer eligi ble based on patient's age to complete this topic HPV VACCINE Aged Out No longer eligi ble based on patient's age to complete this topic MENINGOCOCCAL (Group B) VACCINE Aged Out No longer eligible based on patient's age to complete this topic MENINGOCOCCAL VACCINE Aged Out No blake lance eligible based on patient's age to complete this topic PNEUMOCOCCAL VACCINE Aged Out No long er eligible based on patient's age to complete this topic Procedures Procedure Name Priority Date/Time Associated Diagnosis [...] katie Non-reac tive 12/21/2020 5:14 PM CDT [facility] Comment:Hepatitis C Antibody screen indicates no [...] Meg Asher MD LAB - CHEMISTRY ORDERABLES [address] [address], [facility] [phone] from Last 3 Months or Most Recently Relevant to Health Maintenance Care Teams Elevator Runner Relationship Specialty Start Date End Date Mohsen Sanford MD PCP - General Family Medicine 05/18/16
== END 2024-07-03 16:00 | disposition home or self-care (01) ==
PROVIDERS: PCP Family Medicine; Visit Provider Otolaryngology
DX: H70.11 Chronic mastoiditis, right ear (principal); H66.91 Otitis media, unspecified, right ear; Z96.22 Myringotomy tube(s) status
CPT/HCPCS: 70480

== ENCOUNTER 2024-12-02 08:54 | Outpatient (CLI) | payer OTHER, SELFPAY ==
--- NOTE | ~2024-12-02 | NM_ITS ---
EXAMINATION: NM coco stress w perfusion DATE: 12/02/2024 11:40 INDICATION: Dyspnea TECHNIQUE: Rest images were obtained following intravenous administration of 10.2 mCi Tc99m tetrofosm in (Myoview). The patient was infused intravenously with Lexiscan (Regadenoson). Then, 31.8 mCi Tc99m tetrofosmin (Myoview) was administered intravenously, and stress images were obtained. Data was ra nstructed into short axis and horizontal and vertical long axis SPECT images. Gated SPECT images were also obtained. COMPARISON: None. FINDINGS: There is no definite reversible or fixed perfusion abnormality to suggest ischemia or infar ction. There is normal left ventricular chamber size and wall motion. There is borderline left ventr icular ejection fraction measures 48%. IMPRESSION: 1. Normal myocardial perfusion at rest and during stress. 2. Borderline decreased left ventricular ejection fraction measuring 48%. Reviewed, dictated and finalized at location A.
--- OUTSIDE RECORDS SUMMARY | 2024-12-02 09:02 | XMS_ITS | Clinical Summary ---
Author Organization [facility] Address [address] [place] [address] Care Team Providers Care Oil Changer Name Role Phone Mohsen Sanford MD Primary Care Provider [phone] Source Comments [facility],non-owned Affiliates and Associated Physician Practices is amultiple site organization consisting of ambulatory clinics and hospital sitesin [place], [place], [place] and [place]. This disclosure is being madepursuant to the Care Everywhere program and may not contain all information available regarding this patient. Last updated 18.[facility] Allergies Active Allergy Reactions Criticality Noted Date Comments Azithromycin Unknown 05/18/2016 Penicillins Anaphylaxis High 05/18/2016 Medications * Be aware that medications may not be up to date on this document. Alwaysverify current medications with the patient. 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 Respiratory Rate 18 12/21/2020 2:09 PM CDT Oxygen Saturation 98% 12/21/2020 2:09 PM CDT Inhaled Oxygen Concentration - - Weight 132.5 kg (292 lb) 12/21/2020 2:09 PM CDT Height 175.3 cm (5' 9) 12/21/2020 2:09 PM CDT Body Mass Index 43.12 12/21/2020 2:09 PM CDT Plan of Treatment Health Maintenance Due Date Last Done Comments COLON MONITORING 1965 COLONOSCOPY - COLON CA SCREENING 1967 CT COLONOGRAPHY - COLON CA SCREENING 1967 FIT - COLON CA SCREENING 1967 FLEX SIG - COLON CA SCREENING 1967 HIV SCREENING 1982 DTAP/TDAP/TD VACCINES (1 - Tdap) 1986 HEPATITIS B VACCINE (1 of 3 - 19+ 3-dose series) 1986 PNEUMOCOCCAL VACCINE 50+ (1 of 1 - PCV) 2017 ZOSTER VACCINE (1 of 2) 2017 COLOGUARD (AGES 45-75) - COL ON CA SCREENING 04/13/2023 04/13/2020 Colorectal Cancer Screening 04/13/2023 COVID-19 VACCINE ( - 2023-2 5 season) 2024 DEPRESSION SCREENING 05/27/2024 INFLUENZA VACCINE (#1) 2025 HEPATITIS C SCREENING Completed 12/21/2020 HIB VACCINE Aged Out No longer eligi ble based on patient's age to complete this topic HPV VACCINE Aged Out No longer eligi ble based on patient's age to complete this topic MENINGOCOCCAL (Group B) VACC INE SHARED DECISION-MAKING Aged Out No longer eligibl e based on patient's age to complete this topic MENINGOCOCCAL GROUPS A/C/Y/W VACCINE Aged Out No longer eligible b ased on patient's age to complete this topic [...] katie Non-reac tive 12/21/2020 5:14 PM CDT [facility] Comment:Hepatitis C Antibody screen indicates no [...] 3:09 PM CDT 12/21/2020 3:20 PM CDT us Meg Asher MD LAB - CHEMISTRY ORDERAB LES Final Result [facility] [address] [place] [address], [facility] [phone] from Last 3 Months or Most Recently Relevant to Health Maintenance Insurance [facility] Care Teams Oil Changer Relationship Specialty Start Date End Date Mohsen Sanford MD PCP - General Family Medicine 05/18/16
--- OUTSIDE RECORDS SUMMARY | 2024-12-02 09:02 | XMS_ITS | Continuity of Care Document ---
Author Name [facility] Organization [facility] Care Team Providers Care Charge Accounts Audit Clerk Name Role Phone [facility] Unavailable Unavailable Problems Combined list of problems from [facility] facilities. It does not include entries that were removed or entered in error. Problem Status Onset Date Problem Type Date of Resolution Comments Source Hyperlipidemia * (ICD-9-CM 272.4) Active Condition [facility] Impaired FASTING Glucose Active Condition [facility] Morbid Obesity Active Condition [facility] Medications Combined list of outpatient medications from [facility] facilities.Medications provided include 1) outpatient medications from the last 15 months, and 2) patient-reported medications. Medication Details Route Status Patient Instructions Prescription Expires Prescription Number Last Dispense Date Ordering Provider Order Date Order Qty Source ALPRAZOLAM 0.25MG TAB TAKE ONE TABLET BY MOUTH TWICE DAILY NEEDED ORAL ACTIVE FAN,SASKIA N 2011 [facility] CHOLECALCIF ARTHUR 25MCG (1,000UNIT) TAB TAKE ONE TABLET BY MOUTH ONCE A DAY ORAL ACTIVE FAN,SASKIA N 2011 [facility] Allergies, Adverse Reactions, Alerts Combined list of allergies from [facility] facilities. It does not include entries that were removed or entered in error. Substance Category Reaction Severity Reaction type Status Date Reported Comments Source LOVASTATIN Propensity to adverse reactions to drug (finding) Muscle pain active 2 [facility] PENICILLIN Propensity to adverse reactions to drug (finding) Eruption, Throat irritation active 2 [facility] Immunizations Combined list of available immunizations from the [facility] and [facility] facilities. Immunization Series Date Given Administered By Site Reaction Lot Number CVX Code Drug Displayer Status Comments Source INFLUENZA, UNSPECIFIED FORMULATION 2010 88 complet ed [facility] N TDAP 2008 115 complet ed [facility] [place] Social History Combined list of available smoking, tobacco, and other social history from [facility] Defense and [facility] facilities. Social History Type Response Date Comment Sour e Tobacco smoking status [facility] LIFETIME NON-USER OF TOBACCO 10/24/2011 [facility]
--- NOTE | 2024-12-02 09:31 | EST_ITS ---
Patient Info Name: Srinivasa Degroot Age: 59 years : 1965 Gender: Male Ht: 70 in Wt: 275 lbs BSA: 2.54 m2 HR: 66 bpm BP: 115 / 71 mmHg Exam Date: 12/02/2024 9:31 AM Patient Status: O Admit Date: 12/02/2024 Exam Type: CA stress coco w NM A regadenoson stress test was performed. Staff Referring Physician: iTka Pineda Attending Provider: Tika Pineda Exercise Technologist: Apolonia Marte Exercise Physician: Darryn Garcia DO Summary 1. 1. Inconclusive lexiscan stress test for ischemic ST changes by ECG criteria. 2. 2. Stable hemodynamics throughout the test. 3. 3. Nuclear scan to follow and will be reported separately. Please correlate with it. 4. 4. Patient informed of the above results. Protocol: Lexiscan Stress ECG Details Stage: REST Duration (min): 4 min : 8 sec HR (bpm): 65 SBP (mmHg): 115 DBP (mmHg): 71 Stage: REST Duration (min): 8 min : 2 sec HR (bpm): 66 SBP (mmHg): 115 DBP (mmHg): 71 Stage: STAGE 1 Duration (min): 0 min : 59 sec HR (bpm): 81 SBP (mmHg): 130 DBP (mmHg): 79 Stage: RECOVERY Duration (min): 1 min : 0 sec HR (bpm): 85 SBP (mmHg): 130 DBP (mmHg): 79 Stage: RECOVERY Duration (min): 2 min : 0 sec HR (bpm): 81 SBP (mmHg): 130 DBP (mmHg): 79 Stage: RECOVERY Duration (min): 3 min : 0 sec HR (bpm): 77 SBP (mmHg): 131 DBP (mmHg): 77 Stage: RECOVERY Duration (min): 3 min : 36 sec HR (bpm): 75 SBP (mmHg): 131 DBP (mmHg): 77 Rest HR: 66 bpm Peak HR: 91 bpm Rest Sys BP: 115 mmHg Peak Sys BP: 131 mmHg Max Pred HR: 163 bpm % Max Pred HR: 56 % Target HR: 139 bpm Max RPP: 11,921 bpm*mmHg Termination Reason: Completed protocol Cardiac Symptoms: Dyspnea, Headache Total Time: 1 min : 0 sec Rest Monge BP: 71 mmHg Peak Monge BP: 77 mmHg Total Dose: 0.4 mg Resting ECG Sinus rhythm, LBBB. Stress ECG No ST changes. Arrhythmias None. Report Signatures
== END 2024-12-02 08:55 | disposition home or self-care (01) ==
PROVIDERS: PCP Family Medicine; Visit Provider Nurse Practitioner Family
DX: R06.09 Other forms of dyspnea (principal); R07.89 Other chest pain
CPT/HCPCS: 78452; 93017; A9502; J2785

== ENCOUNTER 2025-03-19 07:26 | Outpatient (CLI) | payer OTHER, SELFPAY ==
--- NOTE | 2025-03-19 07:33 | ECHO_ITS ---
Patient Info Name: Srinivasa Degroot Age: 59 years : 1965 Gender: Male Ht: 69 in Wt: 265 lbs BSA: 2.47 m2 HR: 69 bpm BP: 135 / 81 mmHg Heart Rhythm: Sinus Rhythm Technical Quality: Fair Exam Date: 03/19/2025 7:54 AM Patient Status: O Admit Date: 03/19/2025 Exam Type: CA echo doppler color flow Complete two-dimensional, color flow and Doppler transthoracic echocardiogram is performed. Postpartum Nurse: Apolonia Marte Attending Provider: Darryn Garcia DO Summary 1. Complete two-dimensional, color flow and Doppler transthoracic echocardiogram is performed. 2. Left ventricular chamber dimension is normal. 3. Left ventricular systolic function is normal, estimated at 55-60. 4. There is mild concentric increased left ventricular wall thickness. 5. The left ventricular diastolic function is grade I diastolic dysfunction. 6. E/e' 10 is mildly elevated. 7. Left atrial chamber dimension is moderately enlarged. 8. There is trace mitral valve regurgitation. 9. No pulmonary hypertension, estimated pulmonary arterial systolic pressure is 26 mmHg. Left Ventricle E/e' 10 is mildly elevated. Left ventricular chamber dimension is normal. Left ventricular systolic function is normal, estimated at 55-60. There is mild concentric increased left ventricular wall thickness. The left ventricular diastolic function is grade I diastolic dysfunction. Right Ventricle Right ventricular chamber dimension is normal. Right ventricular systolic function is normal and with normal TAPSE 2.6 cm. Left Atria Left atrial chamber dimension is moderately enlarged. Right Atria Right atrial chamber dimension is normal. Aortic Valve The aortic valve is trileaflet. There is no aortic valve stenosis. There is no aortic valve regurgitation. Pulmonic Valve There is no pulmonic regurgitation. Mitral Valve There is no mitral valve stenosis. There is trace mitral valve regurgitation. Tricuspid Valve There is no tricuspid valve regurgitation. No pulmonary hypertension, estimated pulmonary arterial systolic pressure is 26 mmHg. Pericardium/Pleural There is no pericardial effusion. Inferior Vena Cava Normal inferior vena cava with >50% collapse upon inspiration consistent with normal right atrial pressure, 5 mmHg. Aorta The aortic root size at the sinus of Valsalva is normal. Left Ventricular Outflow Tract Name Value Normal LVOT 2D LVOT Diameter 2.1 cm LVOT Doppler LVOT Peak Velocity 97 cm/s LVOT Peak Gradient 4 mmHg LVOT Mean Gradient 2 mmHg LVOT VTI 18 cm LVOT VTI/AV VTI Ratio 0.6 LVOT Stroke Volume 61 ml LVOT CO 4.0 l/min LVOT CI 1.6 l/min/m2 Pulmonic Valve Name Value Normal RVOT Doppler RVOT Peak Velocity 78 cm/s RVOT Peak Gradient 2 mmHg PV Doppler PV Peak Velocity 122 cm/s PV Peak Gradient 6 mmHg Mitral Valve Name Value Normal MV Diastolic Function MV E Peak Velocity 73 cm/s MV A Peak Velocity 78 cm/s MV E/A 0.9 MV Decel Time (PW) 205 ms MV Annular TDI MV E/e' (Septal) 12.0 MV E/e' (Lateral) 8.8 MV E/e' (Average) 10.4 Tricuspid Valve Name Value Normal TV Regurgitation Doppler TR Peak Velocity 231 cm/s TR Peak Gradient 21 mmHg Estimated PAP/RSVP RA Pressure 5 mmHg <=5 PA Systolic Pressure 26 mmHg <36 RV Systolic Pressure 26 mmHg <36 TV Annular TDI TV Lateral Paulette s' Velocity 13.7 cm/s >=9.5 Aorta Name Value Normal Ascending Aorta Ao Root Diameter (MM) 2.9 cm Ao Root Diam Index (MM) 1.2 cm/m2 Aortic Valve Name Value Normal AV Doppler AV Peak Velocity 149 cm/s AV Peak Gradient 9 mmHg AV Mean Gradient 5 mmHg AV VTI 27 cm AV Area (Cont Eq VTI) 2.2 cm2 >=3.0 AV Area (Cont Eq Gabriele) 2.2 cm2 AV DI (Gabriele) 0.65 AV Regurgitation 2D LVOT Area 3.4 cm2 Ventricles Name Value Normal LV Dimensions 2D/MM IVS Diastolic Thickness (2D) 1.4 cm 0.6-1.0 LVID Diastole (2D) 3.7 cm 4.2-5.8 LVIW Diastolic Thickness (2D) 1.2 cm 0.6-1.0 LVID Systole (2D) 2.8 cm 2.5-4.0 LVOT Diameter 2.1 cm LV Mass (2D Cubed) 163.88 g 88.00-224.00 LV Mass Index (2D Cubed) 66 g/m2 49-115 Relative Wall Thickness (2D) 0.66 <=0.42 LV Fractional Shortening/Ejection Fraction 2D/MM LV Fractional Shortening (2D) 25 % 25-43 LV EF (2D Teichholz) 50 % LV Diastolic Volume (4C MOD) 116 ml LV EF (4C MOD) 59 % LV Diastolic Volume (2C MOD) 87 ml LV EF (2C MOD) 57 % LV Diastolic Volume (BP MOD) 105 ml 62-150 LV Diastolic Volume Index (BP MOD) 42 ml/m2 34-74 LV Systolic Volume (BP MOD) 42 ml 21-61 LV Systolic Volume Index (BP MOD) 17 ml/m2 11-31 LV EF (BP MOD) 60 % 52-72 LV Diastolic Length (4C) 9.1 cm LV Systolic Length (4C) 7.3 cm LV Stroke Volume (4C MOD) 69 ml Atria Name Value Normal LA Dimensions LA Dimension (MM) 4.5 cm 3.0-4.0 LA Volume (4C A-L) 94 ml LA Volume (BP A-L) 86 ml RA Dimensions RA Area (4C) 19.0 cm2 <=18.0 Report Signatures
--- NOTE | 2025-03-19 07:42 | ECG_ITS ---
Test Date: 2025-03-19 07:52:11 Measurements Intervals [place] Rate: 67 P: 52 VT: 156 QRS: -31 QRSD: 162 T: 141 QT: 464 QTc: 491 Interpretive Statements SINUS RHYTHM LEFT AXIS DEVIATION LEFT BUNDLE BRANCH BLOCK ABNORMAL ECG No previous ECG available for comparison Electronically Signed On 03-19-2025 08:03:52 CDT by Darryn Garcia D.O.
== END 2025-03-19 07:27 | disposition home or self-care (01) ==
PROVIDERS: PCP Family Medicine; Visit Provider Internal Medicine Cardiovascular Disease
DX: R94.31 Abnormal electrocardiogram [ECG] [EKG] (principal); R93.1 Abnormal findings on diagnostic imaging of heart and coronary circulation; R07.9 Chest pain, unspecified
CPT/HCPCS: 93005; 93306